=== PATIENT | male | born 1985 | race Caucasian/White ===

== ENCOUNTER 2020-06-10 18:00 | Emergency (ER) | payer MEDICAID ==
[~2020-06-10] VITALS: Ht 172.7 cm; Wt 77.0 kg
[2020-06-10] MEDS: LIDOCAINE HCL/EPINEPHRINE 1%-EPI 1:100,000 50 ML VIAL INFIL NR (22:06)
[2020-06-10 23:23] VITALS: BP 125/82
[2020-06-10] MEDS: TETANUS, DIPHTHERIA, PERTUSSIS VAC/PF 0.5ML (>7YR OLD) IM ONE (23:24)
== END 2020-06-11 00:07 | disposition home or self-care (01) ==
LOC: ER 18:00
DX: S71.131A Puncture wound without foreign body, right thigh, initial encounter (principal); I49.9 Cardiac arrhythmia, unspecified; X95.9XXA Assault by unspecified firearm discharge, initial encounter; Y93.89 Activity, other specified; Y92.89 Other specified places as the place of occurrence of the external cause; Y99.8 Other external cause status
CPT/HCPCS: 73552; 90471; 90715; 93005; 99285